=== PATIENT | female | born 1950 | race Hispanic/Latino ===

== ENCOUNTER 2017-07-04 18:01 | Emergency (ER) | payer BC, MEDICARE ==
[2017-07-04 18:33] LABS: #Basophils 0.1 thou/uL (0.0-0.2); #Eosinphils 0.1 thou/uL (0.0-0.7); #Lymphocytes 3.3 thou/uL (1.20-3.40); #Monocytes 0.6 thou/uL (0.11-0.59); #Neutrophils 8.1 thou/uL (1.40-6.50); %Basophils 0.5 % (0.0-1.0); %Eosinophils 1.2 % (0.0-10.0); %Lymphocytes 26.9 % (21.0-51.0); %Monocytes 5.1 % (0.0-10.0); %Neutrophils 66.3 % (42.0-75.0); Mean Corpuscular Hemoglobin 33.7 pg (27.0-31.0); Mean Corpuscular Volume 99.2 fl (81.0-99.0); Mean Platelet Volume 7.9 fL (7.4-10.4); Platelet Count 239 thou/uL (130-400); RBC Distribution Width 11.9 % (11.5-14.5); Red Blood Cell (RBC) Count 4.16 mill/uL (4.20-5.40); White Blood Cell (WBC) Count 12.2 thou/uL (4.8-10.8)
[2017-07-04 18:54] LABS: ALT (SGPT) 11 U/L (8-55); AST (SGOT) 18 U/L (5-34); Albumin 4.4 g/dL (3.4-4.8); Alkaline Phosphatase 125 U/L (40-150); Anion Gap 19 mmol/L (10-20); BUN (Urea Nitrogen) 9 mg/dL (9.8-20.1); Bilirubin, Total 0.6 mg/dL (0.2-1.2); CK (CPK) 87 U/L (29-168); Calc. Creatinine Clearance 0 mL/min (70-130); Calcium 10.5 mg/dL (7.8-10.44); Carbon Dioxide 20 mmol/L (23-31); Chloride 101 mmol/L (98-107); Estimated GFR-MDRD 63; Globulin 3.7 g/dL (2.4-3.5); Glucose 307 mg/dL (80-115); Potassium 3.5 mmol/L (3.5-5.1); Protein, Total 8.1 g/dL (6.0-8.3); Sodium 136 mmol/L (136-145)
[2017-07-04 18:57] LABS: CKMB 1.7 ng/mL (0-6.6); Troponin I Less than 0.010 ng/mL (< 0.028)
--- NOTE | 2017-07-04 19:36 | RAD ---
AP VIEW OF THE CHEST 07/04/17 INDICATION: Chest pain. IMPRESSION: No acute cardiopulmonary abnormality. COMMENTS: There is stable cardiomegaly. There is stable post CABG change. No air space consolidation, pleural e ffusion or pneumothorax is evident. Osseous structures are similar. POS: [facility]
== END 2017-07-04 20:43 | disposition home or self-care (01) ==
LOC: ERS 18:01
DX: R07.9 Chest pain, unspecified (principal); I25.2 Old myocardial infarction; E11.9 Type 2 diabetes mellitus without complications; E78.5 Hyperlipidemia, unspecified; I10 Essential (primary) hypertension; Z87.891 Personal history of nicotine dependence; Z79.899 Other long term (current) drug therapy; Z79.84 Long term (current) use of oral hypoglycemic drugs
CPT/HCPCS: 71010; 80053; 82553; 83690; 83880; 84484; 85025; 93005

== ENCOUNTER 2019-01-24 13:07 | Observation (INO) | payer MEDICARE, BC ==
[2019-01-24 13:31] LABS: #Basophils 0.1 thou/uL (0.0-0.2); #Eosinphils 0.1 thou/uL (0.0-0.7); #Lymphocytes 1.6 thou/uL (1.20-3.40); #Monocytes 0.5 thou/uL (0.11-0.59); #Neutrophils 7.9 thou/uL (1.40-6.50); %Basophils 0.6 % (0.0-1.0); %Eosinophils 0.6 % (0.0-10.0); %Monocytes 4.7 % (0.0-10.0); %Neutrophils 78.1 % (42.0-75.0); Hemoglobin 13.6 g/dL (12.0-16.0); Mean Corpuscular HGB CONC 32.3 g/dL (32.0-36.0); Mean Corpuscular Hemoglobin 32.1 pg (27.0-31.0); Mean Corpuscular Volume 99.4 fL (78.0-98.0); Platelet Count 259 thou/uL (130-400); RBC Distribution Width 11.9 % (11.5-14.5); Red Blood Cell (RBC) Count 4.25 mill/uL (4.20-5.40); White Blood Cell (WBC) Count 10.1 thou/uL (4.8-10.8)
[2019-01-24 14:02] LABS: ALT (SGPT) 11 U/L (8-55); AST (SGOT) 20 U/L (5-34); Albumin 4.4 g/dL (3.4-4.8); Alkaline Phosphatase 113 U/L (40-150); Anion Gap 13 mmol/L (10-20); BUN (Urea Nitrogen) 8 mg/dL (9.8-20.1); Bilirubin, Total 0.4 mg/dL (0.2-1.2); CK (CPK) 57 U/L (29-168); Calc. Creatinine Clearance 0 mL/min (70-130); Calcium 9.9 mg/dL (7.8-10.44); Carbon Dioxide 26 mmol/L (23-31); Chloride 102 mmol/L (98-107); Estimated GFR-MDRD 81; Globulin 3.2 g/dL (2.4-3.5); Glucose 98 mg/dL (80-115); Potassium 3.9 mmol/L (3.5-5.1); Protein, Total 7.6 g/dL (6.0-8.3); Sodium 137 mmol/L (136-145)
--- NOTE | 2019-01-24 14:24 | RAD ---
CHEST 1 VIEW: HISTORY: Chest pain. COMPARISON: Radiograph 07/04/2017. FINDINGS: Heart size is enlarged. No pneumothorax. No effusion. 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 Vascular stent is present of the right heart border. IMPRESSION: Chronic findings. No acute intrathoracic abnormality. POS: [facility]
[2019-01-24] MEDS ORDERED: Nitroglycerin 2% Ointment 1 INCH/1 GM Packet ONE (16:38)
[2019-01-24 17:24] LABS: Troponin I Less than 0.010 ng/mL (< 0.028)
[2019-01-24 19:25] VITALS: BMI 33.2
--- NOTE | 2019-01-24 20:37 | HP ---
CHIEF COMPLAINT: Chest pain. HISTORY OF PRESENT ILLNESS: Ms. Lawson is a 68-year-old female with past medical history of diabetes, coronary artery disease status post CABG, and hypertension, came because of sweating and pain. The patient says she had pain in the left side of the chest and also in the left shoulder and neck area. The pain is pressure-like, associated with some diaphoresis and some shortness breath, but no nausea or vomiting. No dizziness. The pain radiates to the left shoulder and to the to neck. The patient thought the pain will go away. It started in the late last night, but in the morning, she still had the pain, so she decided to come to the hospital. In the ER, the patient was evaluated. She was given nitroglycerin and currently pain is markedly improved and she is being admitted to rule out myocardial infarction in view of her previous cardiac history and risk factors. PAST MEDICAL HISTORY: 1. Hypertension. 2. Diabetes mellitus. 3. Coronary artery disease, status post CABG. 4. History of acute MS in 2017, status post stent placement. 5. Hyperlipidemia. 6. Diabetic neuropathy. 7. Chronic kidney disease, stage 3. PAST SURGICAL HISTORY: Status post appendectomy, status post cholecystectomy, and status post CABG. CURRENT MEDICATIONS: The patient is on; 1. Gemfibrozil 600 b.i.d. 2. Losartan 50 mg daily. 3. Tramadol p.r.n. 4. Metformin 500 mg two tablets b.i.d. 5. Simvastatin 20 mg daily. 6. Plavix 75 mg daily. 7. Amlodipine 10 mg daily. 8. Metoprolol 25 mg daily. 9. Isosorbide mononitrate 30 mg daily. 10. Insulin 75/25, 60 units in the morning and 50 units in the evening. 11. Aspirin 81 mg daily. ALLERGIES: CODEINE. FAMILY HISTORY: Nothing contributory. SOCIAL HISTORY: The patient lives with family. No history of smoking. No history of alcohol. REVIEW OF SYSTEMS: CARDIOVASCULAR: Has chest pain and shortness of breath. RESPIRATORY: No fever or cough. GASTROINTESTINAL: No nausea or vomiting. CENTRAL NERVOUS SYSTEM: No headache. PHYSICAL EXAMINATION: GENERAL: The patient is alert, awake, oriented x3. VITAL SIGNS: Temperature 98, pulse 80, respirations 19, blood pressure 130/70. HEENT: Head is normocephalic and atraumatic. Pupils are equal, round, and reactive. Nasopharynx is pale and dry. NECK: Supple. No JVD. LUNGS: Bilateral air entry present. No rales. No rhonchi. HEART: S1 and S2, regular. ABDOMEN: Soft. No distention. No tenderness. Normal bowel sounds present. RECTAL: Deferred CENTRAL NERVOUS SYSTEM: No focal deficit. LABORATORY DATA: CBC shows WBC 10, hemoglobin 13, hematocrit 42, platelets 259. Prothrombin time 13, INR 1. Metabolic panel; sodium 137, potassium 3.9, chloride 102, CO2 26, blood urea nitrogen 8, creatinine 0.7, glucose 98. Troponin-I less than 0.010. EKG shows normal sinus rhythm, no acute ST-T wave changes seen. Chest x-ray, negative. ASSESSMENT: 1. Chest pain, rule out myocardial infarction. 2. Coronary artery disease, status post coronary artery bypass grafting. 3. History of myocardial infarction in 2017, status post stent. 4. Diabetes mellitus. 5. Hypertension. 6. Hyperlipidemia. PLAN: 1. Vital signs q.4h. 2. Activities as tolerated. 3. Allergies to codeine. 4. Diet, ADA and cardiac. 5. Heplock. 6. Troponin-I q.8 hours x2. We will obtain adenosine Cardiolite stress test. 7. Continue home medications. 8. Hold metformin. 9. Accu-Chek before meals and at bedtime, sliding scale mild with regular insulin. Job ID: [id number]
[2019-01-24 20:44] LABS: Troponin I Less than 0.010 ng/mL (< 0.028)
[2019-01-24] MEDS ORDERED: Dextrose 5% in Water 1,000 ML IV PRN (22:53)
[2019-01-24] MEDS ORDERED: Insulin Regular 300 UNITS/3 ML VIAL SC PRN ×2 (22:53)
[2019-01-24] MEDS ORDERED: Dextrose 50% Abboject 50 ML SYRINGE IVP PRN (22:53)
[2019-01-24] MEDS ORDERED: Aspirin/APAP/Caffeine Tab (Excedrin Migraine) PO PRN (22:59)
[2019-01-24] MEDS ORDERED: Nitroglycerin 0.4 MG TAB (25 Tab Bottle) SL PRN (23:02)
[2019-01-24] MEDS ORDERED: traMADol HCl 50 MG TAB PO PRN (23:04)
[2019-01-25] MEDS ORDERED: Gemfibrozil 600 MG TAB PO SCH (07:30)
[2019-01-25] MEDS ORDERED: Metoprolol Tartrate 25 MG TAB PO SCH (09:00)
[2019-01-25] MEDS ORDERED: Amlodipine 10 MG TAB PO SCH (09:00)
[2019-01-25] MEDS ORDERED: Clopidogrel Bisulfate 75 MG TAB PO SCH (09:00)
[2019-01-25] MEDS ORDERED: Aspirin 81 mg Enteric Coated Tablet PO SCH (09:00)
[2019-01-25] MEDS ORDERED: ADENOSINE 60 MG/20 ML VIAL ONE (11:48)
[2019-01-25 13:35] VITALS: BP 116/58; TEMP 98.3
--- NOTE | 2019-01-25 13:43 | NM ---
CARDIAC SPECT: 01/25/19 HISTORY: 68-year-old female with chest pain, coronary artery disease, CABG, stent, hypertension, diabetes and dyslipidemia. TECHNIQUE: A myocardial perfusion scan is performed using the single isotope one day protocol with technetium 99 [id number]-Sestamibi. 10 millicuries were injected intravenously for the rest exam followed by 13 millicuries from the stress study. Pharmacologic test with Adenosine is monitored and interpreted by Dr. Tomás rush. FINDINGS: Homogeneous tracer distribution seen in the myocardial segments on stress and rest images Without fix ed or reversible defects. Gated SPECT LVEF: 75%. Wall motion exam: Normal. IMPRESSION: Normal myocardial perfusion scan. POS: [facility]
[2019-01-25] MEDS ORDERED: Losartan 25 MG TAB PO SCH (21:00)
[2019-01-25] MEDS ORDERED: Atorvastatin Calcium 20 MG TAB PO SCH (21:00)
--- NOTE | 2019-01-26 21:41 | DIS ---
DATE OF ADMISSION: 01/24/2019 DATE OF DISCHARGE: 01/25/2019 ADMITTING DIAGNOSES: 1. Chest pain, rule out myocardial infarction. 2. Coronary artery, status post CABG. 3. History of myocardial infarction. 4. Diabetes mellitus. 5. Hypertension. 6. Hyperlipidemia. FINAL DIAGNOSES: 1. Chest pain. No evidence of acute myocardial infarction. Negative Cardiolite stress test. 2. Coronary artery disease, status post CABG. 3. Hypertension. 4. Diabetes mellitus. 5. Hyperlipidemia. BRIEF SUMMARY OF HOSPITAL COURSE: Ms. Lawson is a 68-year-old female, admitted because of chest pain. She is admitted to rule out myocardial infarction in view of risk factors and previous coronary artery disease. Serial cardiac enzymes were done and the second troponin less than 0.010, third one also was then 0.010. The patient underwent a Cardiolite stress testing and it is reported as negative for ischemia. The patient did not have any more chest pain and in view of improvement, the patient is being discharged home. At the time of discharge, she was stable. Vital signs stable. Lungs clear. Heart sounds regular. Abdomen is soft and nontender. Bowel sounds present. DISCHARGE MEDICATIONS: 1. Metoprolol 25 mg daily. 2. Gemfibrozil 600 b.i.d. 3. Nitroglycerin p.r.n. 4. Metformin 1000 b.i.d. 5. Losartan 50 mg daily. 6. Plavix 75 mg daily. 7. Tramadol p.r.n. b.i.d. 8. Simvastatin 40 mg at bedtime. 9. Amlodipine 10 mg daily. 10. Imdur 30 mg daily. 11. Aspirin 81 mg daily. FOLLOWUP: The patient will come for followup in 2 weeks. Job ID: [id number]
== END 2019-01-25 15:29 | disposition home or self-care (01) ==
LOC: ERS 13:07 → 2SW 16:09
PROVIDERS: ADMIT Internal Medicine; ATTEND Internal Medicine
DX: R07.89 Other chest pain (principal); I25.10 Atherosclerotic heart disease of native coronary artery without angina pectoris; I25.2 Old myocardial infarction; I12.9 Hypertensive chronic kidney disease with stage 1 through stage 4 chronic kidney disease, or unspecified chronic kidney disease; E11.22 Type 2 diabetes mellitus with diabetic chronic kidney disease; N18.3 Chronic kidney disease, stage 3 (moderate); E78.5 Hyperlipidemia, unspecified; E11.40 Type 2 diabetes mellitus with diabetic neuropathy, unspecified; Z95.5 Presence of coronary angioplasty implant and graft; Z95.1 Presence of aortocoronary bypass graft; Z88.5 Allergy status to narcotic agent; Z79.84 Long term (current) use of oral hypoglycemic drugs; Z79.82 Long term (current) use of aspirin; Z79.02 Long term (current) use of antithrombotics/antiplatelets; Z79.899 Other long term (current) drug therapy
CPT/HCPCS: 71045; 78452; 80053; 82550; 82962 ×2; 84484 ×2; 85025; 93005; 93017; 99284; A9500; G0378 ×3; 36415; 36416; J0153

== ENCOUNTER 2019-06-23 20:59 | Emergency (ER) | payer BC, MEDICARE ==
--- NOTE | 2019-06-23 21:38 | RAD ---
TWO VIEW CHEST: 06/23/19 HISTORY: Injury. Lungs appear clear. No infiltrate. Mild cardiomegaly with postop sternotomy change. No evidence of va scular congestion or effusion. Osseous structures appear intact. IMPRESSION: No acute process. POS: [facility]
== END 2019-06-23 21:55 | disposition home or self-care (01) ==
LOC: ERS 20:59
DX: S20.212A Contusion of left front wall of thorax, initial encounter (principal); I25.2 Old myocardial infarction; E11.9 Type 2 diabetes mellitus without complications; E78.5 Hyperlipidemia, unspecified; I10 Essential (primary) hypertension; Z87.891 Personal history of nicotine dependence; W18.30XA Fall on same level, unspecified, initial encounter
CPT/HCPCS: 71046

== ENCOUNTER 2024-03-16 19:21 | Inpatient (IN) | payer MEDICARE ==
[~2024-03-16 19:21] MED LIST: Iopamidol-370 76% 500 ML MDV (1 ML CHARGE) ONE
[2024-03-16] MEDS ORDERED: fentaNYL 50 mcg/mL 1 mL Vial ONE (20:12)
[2024-03-16] MEDS ORDERED: Ondansetron PF 4 MG/2 ML Vial ONE (20:12)
[2024-03-16] MEDS ORDERED: Piperacillin/Tazobactam 3.375 GM VIAL ONE (20:12)
[2024-03-16] MEDS ORDERED: Sodium Chloride 0.9% 100 ML ONE (20:13)
[2024-03-16 20:29] LABS: #Basophils Less than 0.03 10x3/uL (0.0-0.2); #Eosinphils Less than 0.03 10x3/uL (0.0-0.7); %Basophils 0.2 % (0.0-1.0); %Eosinophils 0.1 % (0.0-10.0); %Lymphocytes 15.9 % (21.0-51.0); %Monocytes 6.3 % (0.0-10.0); %Neutrophils 77.2 % (42.0-75.0); Hematocrit 31.7 % (36.0-47.0); Hemoglobin 10.3 g/dL (12.0-16.0); Mean Corpuscular HGB CONC 32.5 g/dL (32.0-36.0); Mean Corpuscular Hemoglobin 31.4 pg (27.0-31.0); Mean Corpuscular Volume 96.6 fL (78.0-98.0); Mean Platelet Volume 10.3 fL (7.4-10.4); Platelet Count 315 10x3/uL (130-400); RBC Distribution Width 16.3 % (11.5-14.5); Red Blood Cell (RBC) Count 3.28 mill/uL (4.20-5.40)
[2024-03-16 20:42] LABS: INR-International Normal Ratio 1.2
[2024-03-16 20:43] LABS: PTT 38.8 sec (22.9-36.1)
[2024-03-16 20:45] LABS: ALT (SGPT) 6 U/L (8-55); AST (SGOT) 14 U/L (5-34); Albumin 3.1 g/dL (3.4-4.8); Alkaline Phosphatase 80 U/L (40-110); Anion Gap 19 mmol/L (10-20); BUN (Urea Nitrogen) 26 mg/dL (9.8-20.1); Bilirubin, Total 0.6 mg/dL (0.2-1.2); Calc. Creatinine Clearance 0 mL/min (70-130); Calcium 9.3 mg/dL (7.8-10.44); Carbon Dioxide 19 mmol/L (23-31); Chloride 99 mmol/L (98-107); Estimated GFR 55; Globulin 4.6 g/dL (2.4-3.5); Glucose 195 mg/dL (83-110); Lipase 17 U/L (8-78); Protein, Total 7.7 g/dL (5.8-8.1); Sodium 132 mmol/L (136-145)
[2024-03-16 20:50] LABS: Troponin I Less than 0.010 ng/mL (< 0.028)
[2024-03-16] MEDS ORDERED: Ondansetron PF 4 MG/2 ML Vial IVP PRN (22:31)
[2024-03-16] MEDS ORDERED: Ondansetron ODT 4 MG TAB PO PRN (22:31)
[2024-03-16] MEDS ORDERED: hydrALAZINE 20 MG/ML VIAL SLOW IVP PRN (22:57)
[2024-03-16] MEDS ORDERED: Labetalol HCl 100 MG/20 ML VIAL SLOW IVP PRN (22:58)
[2024-03-16] MEDS ORDERED: Dextrose 5% in Water 1,000 ML IV PRN (22:59)
[2024-03-16] MEDS ORDERED: Glucagon 1 MG/ML KIT IM PRN (22:59)
[2024-03-16] MEDS ORDERED: Dextrose 50% Abboject 50 ML SYRINGE SLOW IVP PRN (22:59)
[2024-03-17 00:50] LABS: Bacteria/HPF None Seen HPF (None Seen); Bilirubin Negative (Negative); Blood, Urine Negative (Negative); CAUTI Indications for Culture Dysuria,urgency,freq; Clarity Clear (Clear); Glucose, Urine (Dipstick) Greater than 1000 mg/dL (Negative); Ketone, Urine Trace mg/dL (Negative); Leukocyte 500 Leu/uL (Negative); Nitrite Negative (Negative); Protein, Urine (Dipstick) Negative (Neg-Trace); Specific Gravity, Urine 1.026 (1.002-1.036); Squamous Epithelial 0-3 HPF (0-3); Urobilinogen Normal mg/dL (Less than 2); WBC/HPF 21-50 HPF (0-3); Yeast-Budding 2+ HPF (None Seen)
[2024-03-17 00:56] LABS: RBC/HPF 0-3 HPF (0-3)
[2024-03-17 00:57] LABS: Urine Culture Reflex Yes Yes
[2024-03-17] MEDS: Lactated Ringer's 1,000 ML IV SCH (02:51)
[2024-03-17] MEDS: Ketorolac Tromethamine 30 MG (1 mL) VIAL IVP PRN (03:08)
[2024-03-17 03:27] VITALS: BMI 22.1
[2024-03-17] MEDS: cefTRIAXone\\ROCEPHIN 1 GM in Sodium Chloride 0.9% 100 ML IVPB SCH (04:20)
[2024-03-17 05:23] LABS: #Basophils Less than 0.03 10x3/uL (0.0-0.2); #Eosinphils Less than 0.03 10x3/uL (0.0-0.7); %Basophils 0.2 % (0.0-1.0); %Eosinophils 0.2 % (0.0-10.0); %Monocytes 7.8 % (0.0-10.0); %Neutrophils 67.6 % (42.0-75.0); Hematocrit 25.8 % (36.0-47.0); Hemoglobin 8.1 g/dL (12.0-16.0); Mean Corpuscular HGB CONC 31.4 g/dL (32.0-36.0); Mean Corpuscular Hemoglobin 31.8 pg (27.0-31.0); Mean Corpuscular Volume 101.2 fL (78.0-98.0); Mean Platelet Volume 10.3 fL (7.4-10.4); Platelet Count 256 10x3/uL (130-400); RBC Distribution Width 16.4 % (11.5-14.5); Red Blood Cell (RBC) Count 2.55 mill/uL (4.20-5.40)
[2024-03-17 05:46] LABS: ALT (SGPT) 5 U/L (8-55); AST (SGOT) 9 U/L (5-34); Albumin 2.2 g/dL (3.4-4.8); Alkaline Phosphatase 53 U/L (40-110); Anion Gap 20 mmol/L (10-20); BUN (Urea Nitrogen) 19 mg/dL (9.8-20.1); Bilirubin, Total 0.4 mg/dL (0.2-1.2); Calc. Creatinine Clearance 64 mL/min (70-130); Calcium 8.1 mg/dL (7.8-10.44); Carbon Dioxide 14 mmol/L (23-31); Chloride 104 mmol/L (98-107); Estimated GFR 92; Globulin 2.9 g/dL (2.4-3.5); Glucose 123 mg/dL (83-110); Potassium 4.2 mmol/L (3.5-5.1); Protein, Total 5.1 g/dL (5.8-8.1); Sodium 134 mmol/L (136-145)
[2024-03-17] MEDS: metroNIDAZOLE 500 MG in Premix 1 BAG IVPB SCH (06:29)
[2024-03-17] MEDS ORDERED: MD-Gastroview 120 ML BOT ONE (07:06)
[2024-03-17] MEDS ORDERED: Sodium Chloride 0.9% 1,000 ML IV SCH (09:15)
[2024-03-17] MEDS: Ascorbic Acid 500 mg Chewable Tablet PO SCH (09:33)
[2024-03-17] MEDS: Famotidine/PF 20 mg/2ml Vial SLOW IVP SCH (09:33)
[2024-03-17] MEDS: Enoxaparin 40 MG (0.4 mL) SYRINGE SC SCH (09:33)
[2024-03-17] MEDS: Morphine 4 MG/ML VIAL SLOW IVP PRN (09:33)
[2024-03-17] MEDS: Ferrous Sulfate 325 MG TAB PO SCH (09:33)
[2024-03-17 11:52] VITALS: BMI 22.1
[2024-03-17] MEDS ORDERED: PROPOFOL 20 ML ONE (16:05)
[2024-03-17] MEDS ORDERED: fentaNYL PF 100 MCG/2 ML SYRINGE ONE (16:05)
[2024-03-17] MEDS ORDERED: SUCCINYLCHOLINE/SOD CL,ISO/PF 200 MG/10 ML SYRINGE FS ONE (16:26)
[2024-03-17] MEDS ORDERED: Lidocaine 1% PF 5 ML VIAL ONE (16:26)
[2024-03-17] MEDS ORDERED: Rocuronium Bromide 10 MG/ML (10ML VIAL) ONE (16:26)
[2024-03-17] MEDS ORDERED: PHENYLEPHRINE-NS 100 MCG/ML 10 ML SYRINGE ONE (16:30)
[2024-03-17] MEDS ORDERED: Dexamethasone 20 MG/5 ML VIAL ONE (16:32)
[2024-03-17] MEDS ORDERED: Ondansetron PF 4 MG/2 ML Vial ONE (16:32)
[2024-03-17] MEDS ORDERED: Ketamine In 0.9 % NaCl 50 MG/5 ML SYRINGE ONE (16:47)
[2024-03-17] MEDS ORDERED: SUGAMMADEX SODIUM 200 MG/2 ML VIAL ONE (18:10)
[2024-03-17] MEDS ORDERED: fentaNYL 50 mcg/mL 1 mL Vial ONE ×3 (18:11→19:32)
[2024-03-17] MEDS ORDERED: Metoprolol Tartrate 5 MG (5 mL) VIAL ONE (18:36)
[2024-03-17] MEDS ORDERED: Ondansetron HCl/PF 4 MG/2 ML Vial IVP PRN (19:11)
[2024-03-17] MEDS ORDERED: Ketorolac Tromethamine 30 MG (1 mL) VIAL ONE (19:11)
[2024-03-17] MEDS ORDERED: Ketorolac Tromethamine 30 MG/ML VIAL IVP PRN (19:11)
[2024-03-17] MEDS ORDERED: Promethazine HCl 25 MG/ML VIAL IM PRN ×2 (19:11→20:34)
[2024-03-17] MEDS ORDERED: Morphine 4 MG/ML VIAL ONE (19:48)
[2024-03-17] MEDS ORDERED: Morphine 2 MG/ML VIAL ONE (20:05)
[2024-03-17] MEDS ORDERED: HYDROmorphone 0.5 MG/0.5 ML SYRINGE ONE ×3 (20:15→21:25)
[2024-03-17] MEDS ORDERED: HYDROmorphone/PF 10 MG in Sodium Chloride 0.9% 99 ML IV PRN (20:34)
[2024-03-17] MEDS ORDERED: diphenhydrAMINE 50 MG/ML VIAL IM PRN (20:34)
[2024-03-17] MEDS ORDERED: diphenhydrAMINE 50 MG/ML VIAL IVP PRN (20:34)
[2024-03-17] MEDS ORDERED: Ondansetron PF 4 MG/2 ML Vial IVP PRN (20:34)
[2024-03-17] MEDS ORDERED: Naloxone HCl 0.4 mg/ml Vial IV PRN (20:34)
[2024-03-17] MEDS ORDERED: diphenhydrAMINE 25 MG CAP PO PRN (20:34)
[2024-03-17] MEDS ORDERED: Communication Order-Pharmacy FS SCH (20:45)
[2024-03-17] MEDS ORDERED: metroNIDAZOLE 500 MG (100 mL) BAG ONE (21:12)
[2024-03-17] MEDS ORDERED: Famotidine/PF 20 mg/2ml Vial ONE (21:12)
[2024-03-18 05:24] LABS: Hematocrit 26.5 % (36.0-47.0); Hemoglobin 8.1 g/dL (12.0-16.0); Mean Corpuscular HGB CONC 30.6 g/dL (32.0-36.0); Mean Corpuscular Volume 104.7 fL (78.0-98.0); Mean Platelet Volume 10.3 fL (7.4-10.4); Platelet Count 221 10x3/uL (130-400); RBC Distribution Width 16.5 % (11.5-14.5); Red Blood Cell (RBC) Count 2.53 mill/uL (4.20-5.40)
[2024-03-18 05:26] LABS: Anion Gap 19 mmol/L (10-20); BUN (Urea Nitrogen) 22 mg/dL (9.8-20.1); Calc. Creatinine Clearance 54 mL/min (70-130); Calcium 8.2 mg/dL (7.8-10.44); Carbon Dioxide 17 mmol/L (23-31); Chloride 110 mmol/L (98-107); Estimated GFR 82; Glucose 164 mg/dL (83-110); Potassium 4.1 mmol/L (3.5-5.1); Sodium 142 mmol/L (136-145)
[2024-03-18 05:56] LABS: Anisocytosis SLIGHT = 6-15 cells HPF (0-5); Band 10 % (5-11); Burr Cells SLIGHT = 2-5 cells HPF (0-1); Lymphocytes 9 % (21-51); Macrocytosis MODERATE=16-30 cells HPF (0-5); Monocytes 2 % (0-10); Neutrophil 79 % (42-75); Platelet Adequacy Comment Platelets Normal; Polychromasia SLIGHT = 2-3 cells HPF (0-2); Toxic Granulation SLIGHT
[2024-03-19] MEDS: HYDROmorphone/PF 10 MG in Sodium Chloride 0.9% 99 ML IVPB PRN (03:49)
[2024-03-19 05:02] LABS: #Basophils Less than 0.03 10x3/uL (0.0-0.2); #Eosinphils Less than 0.03 10x3/uL (0.0-0.7); %Basophils 0.1 % (0.0-1.0); %Eosinophils 0.1 % (0.0-10.0); %Lymphocytes 14.1 % (21.0-51.0); %Monocytes 5.9 % (0.0-10.0); %Neutrophils 79.4 % (42.0-75.0); Hematocrit 27.5 % (36.0-47.0); Hemoglobin 8.3 g/dL (12.0-16.0); Mean Corpuscular HGB CONC 30.2 g/dL (32.0-36.0); Mean Corpuscular Hemoglobin 31.1 pg (27.0-31.0); Mean Platelet Volume 10.6 fL (7.4-10.4); Platelet Count 198 10x3/uL (130-400); RBC Distribution Width 16.2 % (11.5-14.5); Red Blood Cell (RBC) Count 2.67 mill/uL (4.20-5.40)
[2024-03-19 05:21] LABS: Anion Gap 18 mmol/L (10-20); BUN (Urea Nitrogen) 16 mg/dL (9.8-20.1); Calc. Creatinine Clearance 49 mL/min (70-130); Calcium 8.5 mg/dL (7.8-10.44); Carbon Dioxide 20 mmol/L (23-31); Chloride 110 mmol/L (98-107); Estimated GFR 73; Glucose 157 mg/dL (83-110); Potassium 3.2 mmol/L (3.5-5.1); Sodium 145 mmol/L (136-145)
[2024-03-19] MEDS: Famotidine/PF 20 mg/2ml Vial SLOW IVP SCH (09:39)
[2024-03-19] MEDS: Potassium Chloride 20 MEQ in Premix 1 BAG IVPB SCH (15:00)
[2024-03-19] MEDS ORDERED: hydrALAZINE 20 MG/ML VIAL SLOW IVP PRN (17:08)
[2024-03-19] MEDS: Morphine 2 MG/ML VIAL SLOW IVP PRN (20:19)
[2024-03-20 06:53] LABS: #Basophils Less than 0.03 10x3/uL (0.0-0.2); #Eosinphils Less than 0.03 10x3/uL (0.0-0.7); %Eosinophils 0.1 % (0.0-10.0); %Lymphocytes 17.8 % (21.0-51.0); %Monocytes 4.7 % (0.0-10.0); %Neutrophils 76.8 % (42.0-75.0); Hematocrit 28.2 % (36.0-47.0); Hemoglobin 8.5 g/dL (12.0-16.0); Mean Corpuscular HGB CONC 30.1 g/dL (32.0-36.0); Mean Corpuscular Hemoglobin 31.6 pg (27.0-31.0); Mean Corpuscular Volume 104.8 fL (78.0-98.0); Mean Platelet Volume 10.3 fL (7.4-10.4); Platelet Count 197 10x3/uL (130-400); RBC Distribution Width 16.1 % (11.5-14.5); Red Blood Cell (RBC) Count 2.69 mill/uL (4.20-5.40)
[2024-03-20 07:10] LABS: Anion Gap 21 mmol/L (10-20); BUN (Urea Nitrogen) 11 mg/dL (9.8-20.1); Calc. Creatinine Clearance 55 mL/min (70-130); Calcium 8.7 mg/dL (7.8-10.44); Carbon Dioxide 16 mmol/L (23-31); Chloride 112 mmol/L (98-107); Estimated GFR 83; Glucose 138 mg/dL (83-110); Potassium 3.7 mmol/L (3.5-5.1); Sodium 145 mmol/L (136-145)
[2024-03-20] MEDS: fentaNYL 50 mcg/mL 1 mL Vial SLOW IVP PRN (10:02)
[2024-03-21 06:12] LABS: #Basophils Less than 0.03 10x3/uL (0.0-0.2); #Eosinphils Less than 0.03 10x3/uL (0.0-0.7); %Basophils 0.1 % (0.0-1.0); %Eosinophils 0.1 % (0.0-10.0); %Lymphocytes 23.5 % (21.0-51.0); %Monocytes 3.8 % (0.0-10.0); %Neutrophils 72.3 % (42.0-75.0); Hematocrit 29.4 % (36.0-47.0); Hemoglobin 9.1 g/dL (12.0-16.0); Mean Corpuscular Hemoglobin 30.8 pg (27.0-31.0); Mean Corpuscular Volume 99.7 fL (78.0-98.0); Mean Platelet Volume 10.3 fL (7.4-10.4); Platelet Count 210 10x3/uL (130-400); RBC Distribution Width 15.4 % (11.5-14.5); Red Blood Cell (RBC) Count 2.95 mill/uL (4.20-5.40)
[2024-03-21 06:28] LABS: Anion Gap 24 mmol/L (10-20); BUN (Urea Nitrogen) 10 mg/dL (9.8-20.1); Calc. Creatinine Clearance 46 mL/min (70-130); Calcium 8.4 mg/dL (7.8-10.44); Carbon Dioxide 15 mmol/L (23-31); Chloride 110 mmol/L (98-107); Estimated GFR 68; Glucose 152 mg/dL (83-110); Magnesium 1.5 mg/dL (1.6-2.6); Phosphorus 1.9 mg/dL (2.3-4.7); Potassium 2.5 mmol/L (3.5-5.1); Sodium 146 mmol/L (136-145)
[2024-03-21] MEDS: Potassium Chloride 20 MEQ in Premix 1 BAG IVPB SCH (08:42)
[2024-03-21] MEDS: Magnesium Sulfate In Water 4 GM in Premix 1 BAG IVPB SCH (10:42)
[2024-03-21] MEDS: Insulin Lispro 100 UNIT/ML 10 ML VIAL SC PRN ×2 (16:50→21:43)
[2024-03-21 17:06] LABS: Anion Gap 18 mmol/L (10-20); BUN (Urea Nitrogen) 12 mg/dL (9.8-20.1); Calc. Creatinine Clearance 43 mL/min (70-130); Calcium 8.2 mg/dL (7.8-10.44); Carbon Dioxide 16 mmol/L (23-31); Chloride 109 mmol/L (98-107); Estimated GFR 62; Glucose 365 mg/dL (83-110); Magnesium 2.4 mg/dL (1.6-2.6); Potassium 2.6 mmol/L (3.5-5.1); Sodium 140 mmol/L (136-145)
[2024-03-21] MEDS: Potassium Phosphate 30 MMOL in Sodium Chloride 0.9% 250 ML 250 ML IVPB SCH ×2 (18:02→18:28)
[2024-03-22] MEDS: Potassium Phosphate 30 MMOL in Sodium Chloride 0.9% 250 ML 250 ML IVPB SCH (08:30)
[2024-03-22] MEDS: HYDROcodone/Acetaminophen 5/325 mg Tablet PO PRN (10:29)
[2024-03-22] MEDS ORDERED: Nitroglycerin 0.4 MG TAB (25 Tab Bottle) SL SCH (13:30)
[2024-03-22] MEDS: Potassium Chloride 20 MEQ TAB PO SCH (14:40)
[2024-03-22] MEDS: Gabapentin 300 MG CAP PO SCH (14:40)
[2024-03-22 14:50] LABS: Anion Gap 14 mmol/L (10-20); BUN (Urea Nitrogen) 7 mg/dL (9.8-20.1); Calc. Creatinine Clearance 62 mL/min (70-130); Calcium 7.5 mg/dL (7.8-10.44); Carbon Dioxide 19 mmol/L (23-31); Chloride 110 mmol/L (98-107); Estimated GFR 91; Glucose 222 mg/dL (83-110); Potassium 3.3 mmol/L (3.5-5.1); Sodium 140 mmol/L (136-145)
[2024-03-22 15:22] LABS: Phosphorus 4.3 mg/dL (2.3-4.7)
[2024-03-22] MEDS: Acetaminophen 500 MG TAB PO SCH (16:05)
[2024-03-22] MEDS: Mag-Al 1200 mg/1200 mg/30 ML UDCUP PO SCH (16:51)
[2024-03-22] MEDS ORDERED: Ibuprofen 600 MG TAB PO SCH (17:00)
[2024-03-22] MEDS: Naproxen 500 MG TAB PO SCH (20:43)
[2024-03-22] MEDS: traMADol HCl 50 MG TAB PO PRN (20:43)
[2024-03-22] MEDS: Insulin Lispro 100 UNIT/ML 10 ML VIAL SQ SCH (20:48)
[2024-03-22] MEDS: Atorvastatin Calcium 10 MG TAB PO SCH (20:49)
[2024-03-22] MEDS ORDERED: Simvastatin 40 MG TAB PO SCH (21:00)
[2024-03-23] MEDS: Potassium Chloride 20 MEQ TAB PO SCH (06:54)
[2024-03-23 07:05] LABS: Anion Gap 14 mmol/L (10-20); BUN (Urea Nitrogen) 10 mg/dL (9.8-20.1); Calc. Creatinine Clearance 57 mL/min (70-130); Calcium 7.8 mg/dL (7.8-10.44); Carbon Dioxide 19 mmol/L (23-31); Chloride 111 mmol/L (98-107); Estimated GFR 87; Glucose 137 mg/dL (83-110); Potassium 3.7 mmol/L (3.5-5.1); Sodium 140 mmol/L (136-145)
[2024-03-23 07:13] LABS: Phosphorus 2.3 mg/dL (2.3-4.7)
[2024-03-23] MEDS: Amlodipine 10 MG TAB PO SCH (08:45)
[2024-03-23] MEDS: Isosorbide Mononitrate 30 MG ER.TAB PO SCH (08:46)
[2024-03-23] MEDS: Metoprolol Tartrate 25 MG TAB PO SCH (08:46)
[2024-03-23] MEDS: Insulin Lispro 100 UNIT/ML 10 ML VIAL SC SCH (08:47)
[2024-03-23] MEDS: Losartan 25 MG TAB PO SCH (08:47)
[2024-03-23] MEDS: Clopidogrel Bisulfate 75 MG TAB PO SCH (08:47)
[2024-03-23] MEDS: Aspirin 81 mg Enteric Coated Tablet PO SCH (08:47)
[2024-03-23] MEDS ORDERED: Non-Formulary Item 1 EACH (Losartan [Cozaar] 50 MG Tab) PO SCH (09:00)
[2024-03-23] MEDS ORDERED: Insulin Lispro 100 UNIT/ML 10 ML VIAL SC SCH (09:00)
[2024-03-23 09:22] VITALS: TEMP 98.4
[2024-03-23 12:49] VITALS: BP 101/59
== END 2024-03-23 12:51 | disposition home or self-care (01) | DRG 329 ==
LOC: ERS 19:21 → MSONC 22:31
PROVIDERS: ADMIT Internal Medicine; ATTEND Internal Medicine
PROC: 0D9670Z Drainage of Stomach with Drainage Device, Via Natural or Artificial Opening (ICD-10-PCS; 2024-03-16)
PROC: 0D1B0Z4 Bypass Ileum to Cutaneous, Open Approach (ICD-10-PCS; principal; 2024-03-17)
PROC: 0D9W0ZZ Drainage of Peritoneum, Open Approach (ICD-10-PCS; 2024-03-17)
PROC: 0D9H00Z Drainage of Cecum with Drainage Device, Open Approach (ICD-10-PCS; 2024-03-17)
DX: K65.9 Peritonitis, unspecified (principal); K63.1 Perforation of intestine (nontraumatic); D62 Acute posthemorrhagic anemia; K56.691 Other complete intestinal obstruction; E87.1 Hypo-osmolality and hyponatremia; R18.8 Other ascites; I25.10 Atherosclerotic heart disease of native coronary artery without angina pectoris; I10 Essential (primary) hypertension; E78.5 Hyperlipidemia, unspecified; E11.9 Type 2 diabetes mellitus without complications; K21.9 Gastro-esophageal reflux disease without esophagitis; K66.8 Other specified disorders of peritoneum; E87.6 Hypokalemia; E83.42 Hypomagnesemia; E83.39 Other disorders of phosphorus metabolism; Z95.1 Presence of aortocoronary bypass graft; Z79.02 Long term (current) use of antithrombotics/antiplatelets; I25.2 Old myocardial infarction; Z79.899 Other long term (current) drug therapy; Z79.4 Long term (current) use of insulin; Z88.5 Allergy status to narcotic agent; Z90.49 Acquired absence of other specified parts of digestive tract; Z79.82 Long term (current) use of aspirin; Z79.84 Long term (current) use of oral hypoglycemic drugs; Z87.891 Personal history of nicotine dependence; Z79.891 Long term (current) use of opiate analgesic
CPT/HCPCS: 36415; 36416; 43753; 71045; 74018; 74019; 74177; 80048; 80053; 81001; 83605; 83690; 83735; 84100; 84484; 85025; 85610; 85730; 86850; 86900; 86901; 87040; 87070; 87086; 87205; 88304; 93005; 94760; 96374; 96375; 97139; A4314; B4087; J0696; J1100; J1170; J1650; J1815; J1885; J2272; J2405; J2543; J2704; J3010; J3475; J3480; J3490; J7050; J7120; Q9963; Q9967

== ENCOUNTER 2025-02-21 10:28 | Outpatient (CLI) | payer MEDICARE ==
[2025-02-21 11:37] LABS: #Basophils Less than 0.03 10x3/uL (0.0-0.2); #Eosinophils 0.20 10x3/uL (0.0-0.7); #Monocytes 0.44 10x3/uL (0.11-0.59); #Neutrophils 4.84 10x3/uL (1.40-6.50); %Basophils 0.3 % (0.0-1.0); %Eosinophils 2.5 % (0.0-10.0); %Lymphocytes 31.0 % (21.0-51.0); %Monocytes 5.5 % (0.0-10.0); %Neutrophils 60.4 % (42.0-75.0); Hematocrit 36.2 % (36.0-47.0); Hemoglobin 11.9 g/dL (12.0-16.0); Mean Corpuscular Hemoglobin 32.2 pg (27.0-31.0); Mean Corpuscular Volume 97.8 fL (78.0-98.0); Platelet Count 197 10x3/uL (130-400); Red Blood Cell (RBC) Count 3.70 mill/uL (4.20-5.40); White Blood Cell (WBC) Count 8.00 10x3/uL (4.8-10.8)
[2025-02-21 11:59] LABS: Anion Gap 14 mmol/L (10-20); BUN (Urea Nitrogen) 39 mg/dL (9.8-20.1); Calc. Creatinine Clearance 0 mL/min (70-130); Calcium 9.1 mg/dL (7.8-10.44); Carbon Dioxide 14 mmol/L (23-31); Chloride 112 mmol/L (98-107); Glucose 187 mg/dL (83-110); Potassium 3.7 mmol/L (3.5-5.1); Sodium 136 mmol/L (136-145)
== END 2025-02-21 10:29 | disposition home or self-care (01) ==
LOC: LABBT 10:28
PROVIDERS: ATTEND Surgery
DX: Z01.818 Encounter for other preprocedural examination (principal); K94.19 Other complications of enterostomy
CPT/HCPCS: 80048; 85025

== ENCOUNTER 2025-02-21 10:30 | Inpatient (IN) | payer MEDICARE ==
[2025-03-21 11:02] LABS: #Basophils 0.04 10x3/uL (0.0-0.2); #Eosinophils 0.24 10x3/uL (0.0-0.7); #Monocytes 0.45 10x3/uL (0.11-0.59); #Neutrophils 3.61 10x3/uL (1.40-6.50); %Basophils 0.5 % (0.0-1.0); %Eosinophils 3.2 % (0.0-10.0); %Lymphocytes 41.6 % (21.0-51.0); %Monocytes 6.0 % (0.0-10.0); %Neutrophils 48.6 % (42.0-75.0); Hematocrit 39.2 % (36.0-47.0); Hemoglobin 12.8 g/dL (12.0-16.0); Mean Corpuscular Hemoglobin 32.0 pg (27.0-31.0); Mean Corpuscular Volume 98.0 fL (78.0-98.0); Platelet Count 175 10x3/uL (130-400); Red Blood Cell (RBC) Count 4.00 mill/uL (4.20-5.40); White Blood Cell (WBC) Count 7.45 10x3/uL (4.8-10.8)
[2025-03-21] MEDS ORDERED: Lidocaine 1% PF 5 ML VIAL ONE (12:02)
[2025-03-21] MEDS ORDERED: PROPOFOL 20 ML ONE (12:02)
[2025-03-21] MEDS ORDERED: Rocuronium Bromide 10 MG/ML (10ML VIAL) ONE (12:03)
[2025-03-21 12:07] LABS: Anion Gap 16 mmol/L (10-20); Calcium 9.5 mg/dL (7.8-10.44); Carbon Dioxide 15 mmol/L (23-31); Chloride 108 mmol/L (98-107); Glucose 121 mg/dL (83-110); Potassium 3.9 mmol/L (3.5-5.1); Sodium 135 mmol/L (136-145)
[2025-03-21 12:10] LABS: BUN (Urea Nitrogen) 33 mg/dL (9.8-20.1); Calc. Creatinine Clearance 23 mL/min (70-130)
[2025-03-21] MEDS ORDERED: fentaNYL PF 100 MCG/2 ML SYRINGE ONE (13:09)
[2025-03-21] MEDS ORDERED: Ondansetron PF 4 MG/2 ML Vial ONE (14:01)
[2025-03-21] MEDS ORDERED: SUGAMMADEX SODIUM 200 MG/2 ML VIAL ONE (14:03)
[2025-03-21] MEDS ORDERED: Ondansetron PF 4 MG/2 ML Vial IVP PRN (14:46)
[2025-03-21] MEDS ORDERED: Glucagon 1 MG/ML KIT IM PRN ×2 (14:46)
[2025-03-21] MEDS ORDERED: Nitroglycerin 0.4 MG TAB (25 Tab Bottle) SL PRN (14:46)
[2025-03-21] MEDS ORDERED: Dextrose 50% Abboject 50 ML SYRINGE SLOW IVP PRN ×2 (14:46)
[2025-03-21] MEDS ORDERED: hydrALAZINE 20 MG/ML VIAL SLOW IVP PRN (14:46)
[2025-03-21] MEDS: Acetaminophen 500 MG TAB PO SCH (21:14)
[2025-03-21] MEDS: Gabapentin 300 MG CAP PO SCH (21:15)
[2025-03-21] MEDS: Famotidine/PF 20 mg/2ml Vial SLOW IVP SCH (21:16)
[2025-03-21] MEDS: Ferrous Sulfate 325 MG TAB PO SCH (21:16)
[2025-03-21] MEDS: Famotidine 20 MG TAB PO SCH (21:16)
[2025-03-21] MEDS: metFORMIN XR 500 MG ER.TAB PO SCH (21:16)
[2025-03-22 05:01] VITALS: BMI 29.2
[2025-03-22 08:45] LABS: #Basophils Less than 0.03 10x3/uL (0.0-0.2); #Eosinophils Less than 0.03 10x3/uL (0.0-0.7); #Monocytes 0.50 10x3/uL (0.11-0.59); #Neutrophils 6.97 10x3/uL (1.40-6.50); %Basophils 0.1 % (0.0-1.0); %Eosinophils 0.1 % (0.0-10.0); %Lymphocytes 18.7 % (21.0-51.0); %Monocytes 5.4 % (0.0-10.0); %Neutrophils 75.4 % (42.0-75.0); Hematocrit 32.5 % (36.0-47.0); Hemoglobin 10.6 g/dL (12.0-16.0); Mean Corpuscular Hemoglobin 31.8 pg (27.0-31.0); Mean Corpuscular Volume 97.6 fL (78.0-98.0); Platelet Count 159 10x3/uL (130-400); Red Blood Cell (RBC) Count 3.33 mill/uL (4.20-5.40); White Blood Cell (WBC) Count 9.25 10x3/uL (4.8-10.8)
[2025-03-22 08:58] LABS: Anion Gap 14 mmol/L (10-20); BUN (Urea Nitrogen) 28 mg/dL (9.8-20.1); Calc. Creatinine Clearance 34 mL/min (70-130); Calcium 8.3 mg/dL (7.8-10.44); Carbon Dioxide 16 mmol/L (23-31); Chloride 114 mmol/L (98-107); Glucose 191 mg/dL (83-110); Potassium 4.1 mmol/L (3.5-5.1); Sodium 140 mmol/L (136-145)
[2025-03-22] MEDS: Dapagliflozin Propanediol 10 MG TAB PO SCH (09:56)
[2025-03-22] MEDS: Enoxaparin 30 MG (0.3 mL) SYRINGE SC SCH (09:56)
[2025-03-22] MEDS: Losartan 25 MG TAB PO SCH (09:56)
[2025-03-22 12:25] VITALS: BP 96/53; TEMP 97.7
== END 2025-03-22 13:15 | disposition home or self-care (01) | DRG 331 ==
LOC: SURG A 03-21 09:23
PROVIDERS: ADMIT Surgery; ATTEND Surgery
PROC: 0DW807Z Revision of Autologous Tissue Substitute in Small Intestine, Open Approach (ICD-10-PCS; principal; 2025-03-21)
DX: K63.4 Enteroptosis (principal); E11.9 Type 2 diabetes mellitus without complications; I25.10 Atherosclerotic heart disease of native coronary artery without angina pectoris; E78.5 Hyperlipidemia, unspecified; G89.29 Other chronic pain; I10 Essential (primary) hypertension; Z98.890 Other specified postprocedural states; Z90.49 Acquired absence of other specified parts of digestive tract; Z88.5 Allergy status to narcotic agent; G47.33 Obstructive sleep apnea (adult) (pediatric); Z79.82 Long term (current) use of aspirin; Z79.4 Long term (current) use of insulin; Z79.84 Long term (current) use of oral hypoglycemic drugs; Z79.899 Other long term (current) drug therapy
CPT/HCPCS: 36415; 36416; 80048; 85025; A4314; J0694; J1100; J1650; J1815; J2405; J2704; J3010; J7030

== ENCOUNTER 2025-03-08 09:07 | Outpatient (CLI) | payer MEDICARE ==
[2025-03-08 09:48] LABS: Estimated GFR - POC 27.0
== END 2025-03-08 09:08 | disposition home or self-care (01) ==
LOC: CT 09:07
PROVIDERS: ATTEND Surgery
DX: K94.19 Other complications of enterostomy (principal); K56.699 Other intestinal obstruction unspecified as to partial versus complete obstruction; K46.9 Unspecified abdominal hernia without obstruction or gangrene; K63.89 Other specified diseases of intestine; N83.8 Other noninflammatory disorders of ovary, fallopian tube and broad ligament; I70.0 Atherosclerosis of aorta; M47.819 Spondylosis without myelopathy or radiculopathy, site unspecified
CPT/HCPCS: 36415; 74176; 82565